=== PATIENT | female | born 2000 | race Caucasian/White ===

== ENCOUNTER 2023-02-02 19:18 | Emergency (ER) | payer MEDICAID, OTHER ==
[~2023-02-02] VITALS: Ht 157.5 cm; Wt 50.0 kg
[2023-02-02 22:35] VITALS: PULSE 96; RESP 18; O2SAT 98
[2023-02-02] MEDS ORDERED: ONDANSETRON HCL 4 MG/2 ML VIAL IV ONE (23:00)
[2023-02-02] MEDS ORDERED: HYDROmorphone HCL 2 MG/ML VL/or syr IV ONE (23:00)
[2023-02-03] MEDS ORDERED: IBUP-1454 PO (00:18)
[2023-02-03] MEDS ORDERED: PERCOT PO (00:18)
[2023-02-03] MEDS ORDERED: DOCU-94 PO (00:19)
[2023-02-03 00:49] VITALS: O2SAT 96
[2023-02-03] MEDS ORDERED: HYDROmorphone HCL 2 MG/ML VL/or syr IV ONE (01:00)
[2023-02-03 01:45] VITALS: BP 141/71; PULSE 86; RESP 18
== END 2023-02-03 01:41 | disposition home or self-care (01) ==
LOC: ER 19:18 → EDBD 19:18 → ER 02-03 01:41
DX: S82.242A Displaced spiral fracture of shaft of left tibia, initial encounter for closed fracture (principal); S82.442A Displaced spiral fracture of shaft of left fibula, initial encounter for closed fracture; X50.1XXA Overexertion from prolonged static or awkward postures, initial encounter; Y93.23 Activity, snow (alpine) (downhill) skiing, snowboarding, sledding, tobogganing and snow tubing; Y92.89 Other specified places as the place of occurrence of the external cause; Y99.8 Other external cause status
CPT/HCPCS: 29125; 73590; 96374; 96375; 96376; 99285; J1170; J2405